=== PATIENT | female | born 1950 | race Caucasian/White ===

== ENCOUNTER 2025-06-22 12:21 | Outpatient (CLI) | payer MEDICARE ==
[~2025-06-22 12:21] MED LIST: ARIP5TAB12 PO; ASPI-1053 PO; ATOR40TA PO; CALC-793 PO; CHLO25TA2 PO; HOME 02 NS; IBUP-1984 PO; LANTUS SQ; LEVO50TA PO; LISI40TA20 PO; METF500T PO; MULT-620 PO; OMEP40CA21 PO; PRAZ5CAP2 PO; SERT50TA PO
--- NOTE | 2025-06-24 14:13 | CONSULTATION ---
DATE OF CONSULTATION: 06/22/2025 DICTATING PHYSICIAN: Judith Deutsch M.S., [facility] MODIFIED BARIUM SWALLOW STUDY REPORT REFERRING PHYSICIAN: Benito Rogers MD HISTORY OF PRESENT ILLNESS: The patient is a 74-year-old female and consents to this evaluation. In history obtained from the patient and medical records, the patient reports symptoms of dysphagia including having foods and liquids go through her nose. She reports that this has been occurring since 08/2024. She had a colonoscopy at the time and woke up with a very stiff neck. The next morning, she noticed that she was having difficulty with mastication and could barely swallow, and that is when she started to have the liquid come through her nose. In terms of solid consistency, she has had scrambled eggs come through her nose before as well. She reported that in terms of mastication at the time that she could chew about 1-2 bites at a time and then was no longer able to do so. The patient then had COVID in March. She underwent 3 infusions and steroids and the steroids actually helped increase her ability to masticate food items. She notes that she has limited the amount of food and liquid that is regurgitated through her nose by taking smaller bites and sips. She also takes her time and chews her food thoroughly. She reports that she has also been coughing on food and liquid and feeling as if it sticks at the level of her larynx. She has lost 40 pounds since August. The patient also has a medical history of an ICU stay with intubation 2 times and tracheostomy 7 years ago. At that time at [facility], she was diagnosed with vocal cord paralysis. She had her tracheostomy for 15 months and that has since closed. CURRENT DIET: The patient is currently on a regular textured thin liquid diet. She does not have any restrictions in terms of food items, but she is very careful to take the smaller bites and sips and chew her food thoroughly. MEDICATIONS: Levothyroxine 125 mcg one tablet once daily orally, Farxiga 5 mg one tablet once daily orally, quetiapine 300 mg one tablet once daily orally, atorvastatin 80 mg one tablet once daily orally, oxygen use at night, Toujeo Solostar U-300 insulin 300 units/mL 1.5 mL subcutaneous pen x 2, vitamin D2 CP 20,000 IU once weekly. PARAMETERS: The patient is seated in a lateral 90-degree view and administered the usual protocol of thin and nectar thick liquids, puree and solid consistencies as well as self-regulated boluses of thin liquids from a cup. RESULTS: In the oral stage of the swallow, oral transit is characterized by reduced lingual strength as lingual rocking motion is utilized to propel the puree bolus from the anterior to the posterior oral cavity. Lingual strength is mild to moderately reduced. The patient demonstrates a moderate oral residue for puree and solid consistencies. Part of this appears to be due to lingual strength, but the other part is because the patient utilizes a piecemeal swallow due to velopharyngeal incompetence. In the pharyngeal stage of the swallow, it was noticed that the patient had reduced strength to elevate and hold the elevation of the velum during the swallow. The velum would elevate to block the nasal cavity from the pharynx before the swallow and would come back down mid swallow and re-elevate again after the swallow. Tongue base retraction was mildly reduced. Swallow initiation was delayed to the level of the piriform for thin liquids. The majority of the bolus would reside in the oral cavity and then less than 10% of the bolus would be at the level of the piriform. The swallow initiation was delayed to the level of the vallecula for nectar thick liquids. Anterior movement of the posterior pharyngeal wall was observed. Elevation of the hyothyroid complex was accomplished with full range of motion. There was no residue noticed in the pharynx after the tail of the bolus was passed and PES opening was within functional limits. In terms of airway safety, the patient demonstrated penetration for the 3 mL and 5 mL thin liquid boluses that was independently cleared. It was also noted that for the self-regulated bolus of thin liquid from a cup that there was proximal movement of that bolus in the lateral plane. ANTERIOR, POSTERIOR VIEW: In the AP plane, the bolus split symmetrically between the piriform sinuses and no proximal movement of the boluses was noted. 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 The patient was also demonstrating decreased lingual strength and decreased strength of tongue base retraction. The patient also demonstrated penetration of the 3 mL and 5 mL thin liquid bolus. DIAGNOSES: R13.12 dysphagia, oropharyngeal phase; K13.79 velopharyngeal incompetence; J95.00 unspecified tracheostomy complication; R05.9 cough. PATIENT EDUCATION: Immediately following modified barium swallow study, the patient was able to view the results. The normal anatomy of the swallowing mechanism was reviewed. The patient was able to see how the current status of the swallowing mechanism decreases her ability to swallow normally. The patient was educated on a recommendation for speech therapy. She indicated that she was very interested in pursuing speech therapy services; however, she lives 3 hours away from this clinician and so she was hopeful that she could find a speech therapist closer to home as she was unable to do weekly visits due to distance and gas. The patient was educated on a swallowing exercise that she could begin to complete at home, called the Felisa maneuver to target the elevation of the velum and strength of tongue base retraction. The patient had indicated that she has a referral for GI in place. RECOMMENDATIONS: * It is recommended that the patient receive swallowing therapy one time weekly for 12 weeks to improve the strength and range of motion of the swallowing musculature to ensure airway safety protection and prevent aspiration. The patient does live 3 hours from this clinician's clinic and indicated that she was very interested in swallowing therapy but that she would like a referral closer to her home as she is unable to make weekly visits to [facility]. * It is recommended that the patient be considered for a Neurology referral. LONG-TERM GOALS: The patient will maintain adequate hydration/nutrition with optimum safety and efficiency of swallow function on p.o. intake without overt signs and symptoms of aspiration for the highest possible diet level. FUNCTIONAL ORAL INTAKE: The FOIS was administered to establish and document a change in the functional eating activities of this patient over time. This is a 7-point scale with 1 indicating no oral intake and totally tube dependent and 7 indicating total oral intake with no restrictions. This patient received 7 which indicates total oral intake with no restrictions. G-CODE: [id number]. Thank you very much for asking me to participate in the care of this kind patient. Should you have any questions regarding this evaluation or recommendations, please do not hesitate to contact me at [phone]. During this examination, 3:31 minutes of fluoroscopy time and 44.73 CAK mGy were utilized. Judith Deutsch M.S., [facility] TID: [id number] RECEIPT: [id number] YULISSA/LEONCIO SHAFERD
== END 2025-06-22 23:59 | disposition home or self-care (01) ==
LOC: RAD 12:21
PROVIDERS: ATTEND Otolaryngology
DX: R13.12 Dysphagia, oropharyngeal phase (principal); J95.00 Unspecified tracheostomy complication; R05.9 Cough, unspecified
CPT/HCPCS: 74230